=== PATIENT | female | born 1990 | race Caucasian/White ===

== ENCOUNTER 2023-03-13 07:08 | Inpatient (IN) | payer BC ==
[2023-03-13] MEDS: ELECTROLYTE-148 SOLN 1,000 ML IV SCH ×2 (07:45→13:04)
[2023-03-13 08:21] VITALS: BMI 36.0
[2023-03-13] MEDS ORDERED: OXYTOCIN 30 UNITS in 0.9% NS 30 UNIT/500 ML INFUS.BAG IVPB SCH (09:30)
[2023-03-13] MEDS ORDERED: OXYTOCIN 20 UNITS in 0.9% NS 20 UNIT/1,000 ML INFUS.BAG IV ONE ×2 (09:41→15:53)
[2023-03-13] MEDS ORDERED: OXYTOCIN 30 UNITS in 0.9% NS 30 UNIT/500 ML INFUS.BAG IVPB ONE (09:44)
[2023-03-13 09:51] LABS: INR 0.89 (0.83-1.09); PROTHROMBIN TIME (PATIENT) 10.3 SEC (9.7-13.0)
[2023-03-13 09:54] LABS: ACTIVATED PTT 23.6 SECONDS (25.2-36.5)
[2023-03-13 09:55] LABS: BASO % 0.7 % (0-2.0); EOS % 0.5 % (0-4.5); HEMATOCRIT 30.6 % (32.4-45.2); HEMOGLOBIN 10.3 GM/dL (10.7-15.3); LYMPH % 20.7 % (8-40); MCH 28.1 pg (25.7-33.7); MCHC 33.5 g/dl (32.0-36.0); MEAN CELL VOLUME 83.9 fl (80-96); MEAN PLT VOLUME 10.3 fl (7.5-11.1); MONO % 5.7 % (3.8-10.2); NEUT % 72.4 % (42.8-82.8); PLATELET COUNT 184 10^3/uL (134-434); RBC 3.65 M/mm3 (3.60-5.2); RDW 14.4 % (11.6-15.6); WHITE BLOOD COUNT 6.6 K/mm3 (4.0-10.0)
[2023-03-13 09:57] LABS: RETICULOCYTES 1.56 % (0.5-1.5)
[2023-03-13 10:00] LABS: POTASSIUM 4.2 mmol/L (3.5-5.1)
[2023-03-13 10:03] LABS: CALCIUM 8.5 mg/dL (8.5-10.1); GAMMA GLUTAMYL TRANSPEPTIDASE 8 U/L (5-85)
[2023-03-13 10:04] LABS: BLOOD UREA NITROGEN 10.3 mg/dL (7-18)
[2023-03-13 10:06] LABS: SGOT/AST 8 U/L (15-37); SGPT/ALT 14 U/L (13-61)
[2023-03-13 10:07] LABS: CREATININE 0.7 mg/dL (0.55-1.3)
[2023-03-13] MEDS ORDERED: FENTANYL/BUPIVACAINE/NS/PF - PCEA - 50 ML DISP.SYRIN EP ONE ×2 (12:41→15:37)
[2023-03-13] MEDS ORDERED: BUPIVACAINE HCL/PF 0.25% (2.5MG/ML) 10 ML VIAL ONE ×2 (12:55→16:23)
[2023-03-13] MEDS: FENTANYL/BUPIVACAINE/NS/PF - PCEA - 50 ML DISP.SYRIN EP SCH ×5 (13:05→15:42)
[2023-03-13] MEDS ORDERED: NALOXONE HCL 0.4 MG/ML VIAL IVPUSH PRN (13:17)
[2023-03-13] MEDS ORDERED: LIDOCAINE HCL 1% PRESERVATIVE FREE - 30ML VIAL ONE (15:53)
[2023-03-13] MEDS ORDERED: BENZOCAINE 28 GM HEMORRHOIDAL OINTMENT TP PRN (17:14)
[2023-03-13] MEDS ORDERED: BENZOCAINE 20% 57 GM BOTTLE TP PRN (17:14)
[2023-03-13] MEDS ORDERED: BISACODYL 10 MG SUPP.RECT RC PRN (17:14)
[2023-03-13] MEDS ORDERED: METHYLERGONOVINE MALEATE 0.2 MG/1 ML AMP IM PRN (17:14)
[2023-03-13] MEDS ORDERED: WITCH HAZEL 50% (TUCKS) 40 PAD/JAR PAD TP PRN (17:14)
[2023-03-13] MEDS ORDERED: oxyCODONE HCL 5 MG TABLET PO PRN (17:14)
[2023-03-13] MEDS ORDERED: IBUPROFEN 600 MG TABLET (FP) PO PRN (17:14)
[2023-03-13] MEDS ORDERED: ACETAMINOPHEN 325 MG TABLET (FP) PO PRN (17:14)
[2023-03-13] MEDS ORDERED: OXYTOCIN 20 UNITS in 0.9% NS 20 UNIT/1,000 ML INFUS.BAG IV SCH (17:15)
[2023-03-13] MEDS: FERROUS SO4 325 MG TABLET (FP) PO SCH (18:47)
[2023-03-13] MEDS ORDERED: LABETALOL HCL 20 MG/4 ML VIAL ONE (19:43)
[2023-03-13] MEDS ORDERED: LABETALOL HCL 5 MG/1 ML (100MG/20 ML VIAL) IVPUSH ONE (20:01)
[2023-03-13] MEDS: NIFEdipine E.R. 30 MG TABLET PO SCH (20:38)
[2023-03-13] MEDS: LABETALOL HCL 200 MG TABLET (FP) PO SCH (21:34)
[2023-03-14 07:49] LABS: BASO % 0.4 % (0-2.0); EOS % 0.8 % (0-4.5); HEMATOCRIT 30.2 % (32.4-45.2); LYMPH % 19.2 % (8-40); MCH 27.6 pg (25.7-33.7); MEAN CELL VOLUME 83.6 fl (80-96); MEAN PLT VOLUME 10.1 fl (7.5-11.1); MONO % 6.1 % (3.8-10.2); NEUT % 73.5 % (42.8-82.8); PLATELET COUNT 186 10^3/uL (134-434); RBC 3.61 M/mm3 (3.60-5.2); RDW 14.3 % (11.6-15.6); WHITE BLOOD COUNT 9.7 K/mm3 (4.0-10.0)
[2023-03-14] MEDS: FERROUS SO4 325 MG TABLET (FP) PO SCH ×2 (08:25→18:33)
[2023-03-14] MEDS: NIFEdipine E.R. 30 MG TABLET PO SCH (09:56)
[2023-03-14] MEDS: PRENATAL VITAMINS W/ FOLIC ACID TABLET (FP) PO SCH (09:56)
[2023-03-14] MEDS: LABETALOL HCL 200 MG TABLET (FP) PO SCH ×2 (09:56→21:07)
[2023-03-14] MEDS ORDERED: FLU VACCINE (FLULAVAL) PF 60 MCG/0.5 ML SYRINGE 2023-2024 IM ONE (10:00)
[2023-03-14] MEDS ORDERED: NIFEdipine E.R 60 MG TABLET PO SCH (10:00)
[2023-03-14] MEDS: FENTANYL/BUPIVACAINE/NS/PF - PCEA - 50 ML DISP.SYRIN EP SCH (17:12)
[2023-03-14] MEDS ORDERED: SENNOSIDES/DOCUSATE COMBO (SENNA PLUS) TABLET (UD) PO PRN (22:00)
[2023-03-15] MEDS: FERROUS SO4 325 MG TABLET (FP) PO SCH (08:29)
[2023-03-15 09:54] VITALS: BP 146/94; PULSE 87; RESP 16; TEMP 97.9
[2023-03-15] MEDS: LABETALOL HCL 200 MG TABLET (FP) PO SCH (10:01)
[2023-03-15] MEDS: NIFEdipine E.R. 30 MG TABLET PO SCH (10:01)
[2023-03-15] MEDS: PRENATAL VITAMINS W/ FOLIC ACID TABLET (FP) PO SCH (10:01)
== END 2023-03-15 12:00 | disposition home or self-care (01) | DRG 807 ==
LOC: JLDR 07:08 → J3W 20:00
PROVIDERS: ADMIT Obstetrics & Gynecology; ATTEND Obstetrics & Gynecology
PROC: 10E0XZZ Delivery of Products of Conception, External Approach (ICD-10-PCS; principal; 2023-03-13)
PROC: 0HQ9XZZ Repair Perineum Skin, External Approach (ICD-10-PCS; 2023-03-13)
PROC: 3E033VJ Introduction of Other Hormone into Peripheral Vein, Percutaneous Approach (ICD-10-PCS; 2023-03-13)
PROC: 0U7C7ZZ Dilation of Cervix, Via Natural or Artificial Opening (ICD-10-PCS; 2023-03-13)
DX: O10.92 Unspecified pre-existing hypertension complicating childbirth (principal); Z37.0 Single live birth; O70.0 First degree perineal laceration during delivery; Z3A.39 39 weeks gestation of pregnancy
CPT/HCPCS: 36415; 80048; 82977; 83010; 84450; 84460; 84550; 85025; 85032; 85045; 85610; 85730; 86780; 86850; 86900; 86901; 90686; G0008